=== PATIENT | male | born 1985 | race African-American/Black ===

== ENCOUNTER 2020-03-04 18:12 | Emergency (ER) | payer SELFPAY ==
[2020-03-04 18:24] VITALS: BMI 21.1
--- NOTE | 2020-03-04 18:29 | PDOC ---
History of Present Illness - General Chief Complaint: Nausea/Vomiting Stated Complaint: VOMITTING Time Seen by Provider: 03/04/20 18:29 History Source: Patient Exam Limitations: No Limitations - History of Present Illness Initial Comments: 03/04/20 19:11 HPI: This is a 34 y/o male with no PMH and no hx of abdominal surgery presenting to the ED because of nausea and 5 episodes of NBNB emesis that began at 7am this morning. He works cleaning restaurants overnight, and the nausea and vomiting started when he got home. Following the N/V, he began having non-radiating periumbilical squeezing abdominal pain. He tried eating a hamburger, and then threw it up. He has been making himself vomit because it relieves his nausea. He admits to one episodes of non-bloody diarrhea this morning. Denied any fever/chills, headache, chest pain, SOB. ROS: GENERAL/CONSTITUTIONAL: No fever/chills. No weakness. HEAD, EYES, EARS, NOSE AND THROAT: No change in vision. No ear pain or discharge. No sore throat. CARDIOVASCULAR: No chest pain or shortness of breath. RESPIRATORY: No cough, wheezing, or hemoptysis. GASTROINTESTINAL: Yes nausea/vomiting. Yes diarrhea. GENITOURINARY: No dysuria, frequency, or change in urination. MUSCULOSKELETAL: No joint or muscle swelling or pain. No neck or back pain. SKIN: No rash NEUROLOGIC: No headache, vertigo HEMATOLOGIC/LYMPHATIC: No anemia, easy bleeding, or history of blood clots. ALLERGIC/IMMUNOLOGIC: No hives or skin allergy. PMH: Denies PSx: Inguinal hernia repair (3yrs) Social Hx: Admits to tobacco and marijuana. Denies etoh. Meds: Denies Allergies: Denies PE: GENERAL: Awake, alert, and fully oriented. Patient uncomfortable. HEAD: No signs of trauma EYES: PERRLA, EOMI, sclera anicteric, conjunctiva clear NECK: Normal ROM, supple LUNGS: Breath sounds equal, clear to auscultation bilaterally. No wheezes, and no crackles HEART: Regular rate and rhythm, normal S1 and S2, no murmurs, rubs or gallops ABDOMEN: Soft, nontender, normoactive bowel sounds. No guarding, no rebound. No masses EXTREMITIES: Normal range of motion, no edema. No clubbing or cyanosis. No cords, erythema, or tenderness NEUROLOGICAL: Cranial nerves II through XII grossly intact. Normal speech, normal gait MDM: This is a 34 y/o male with no PMH and no hx of abdominal surgery presenting to the ED because of nausea and 5 episodes of NBNB emesis that began at 7am this morning. - Self induced vomiting because he says it resolves the nausea - No abdominal tenderness on exam appendicitis vs pancreatitis vs rhabdo vs cyclic vomiting due to marijuana use - EKG - CXR - CBC - CMP - CK - UA - Utox - Will give zofran, famotidine, fluids and reassess - Vomiting stopped after zofran - labs WNL - Pt reports that he uses marijuana 03/04/20 22:25 - Pt reports improvement with symptoms with medication and rehydration - PO challenge and then d/c - Pt ok with being d/c. Understands return precautions. Advised to follow-up with a pcp. Referral given. Past History - Medical History Allergies/Adverse Reactions: Allergies Allergy/AdvReac Type Severity Reaction Status Date / Time No Known Allergies Allergy Unverified 03/04/20 18:24 Home Medications: Ambulatory Orders Ondansetron HCl [Zofran] 4 mg PO TID PRN 5 Days #15 tablet 03/04/20 COPD: No - Psycho-Social/Smoking History Smoking History: Current every day smoker Have you smoked in the past 12 months: Yes Number of Cigarettes Smoked Daily: 12 Information on smoking cessation initiated: No - Substance Abuse Hx (Audit-C & DAST Scrn) How often the patient has a drink containing alcohol: Never Score: In Men: 4 or > Positive; In Women: 3 or > Positive: 0 Screen Result (Pos requires Nsg. Audit-10AR): Negative In the last yr the pt used illegal drug/Rx for NonMed reason: No Score: Yes response is considered Positive: 0 Screen Result (Positive result requires Nsg. DAST-10): Negative *Physical Exam - Vital Signs Last Vital Signs Temp Pulse Resp BP Pulse Ox 97.7 F 140 H 22 H 153/72 99 03/04/20 18:18 03/04/20 18:18 03/04/20 18:18 03/04/20 18:18 03/04/20 18:18 Heart Score/ECG Review - ECG Intrepretation Comment:: 03/04/20 22:[address] elevations. Sinus bradycardia. Septal infarct age undetermined. Vent rate 50bpm, CT interval 158ms, QRS duration 110ms, QT/QTc 432/393 ED Treatment Course - LABORATORY CBC & Chemistry Diagram: 03/04/20 19:50 03/04/20 19:50 Discharge - Discharge Information Problems reviewed: Yes Clinical Impression/Diagnosis: Nausea and vomiting Qualifiers: Vomiting type: unspecified Vomiting Intractability: non-intractable Qualified Code(s): R11.2 - Nausea with vomiting, unspecified Condition: Stable Disposition: HOME - Admission No - Additional Discharge Information Prescriptions: Ondansetron HCl [Zofran] 4 mg PO TID PRN 5 Days #15 tablet PRN Reason: Nausea - Follow up/Referral Referrals: [facility] [place] [facility] [Provider Group] - Patient Discharge Instructions Patient Printed Discharge Instructions: DI for Nausea -- Adult, DI for Vomiting -- Adult Additional Instructions: You came to the ED because of nausea/vomiting and abdominal pain. We treated your nausea with Zofran and Reglan. Your labs were all fine. - We are sending Zofran to [facility] on [address] [facility] Over the next 24 hours try and only drink clear liquids. If you can keep that down you can move onto the BRAT (bananas, rice, applesauce, toast) diet. If you tolerate that, you can then eat normally. Please return to the ED with any new or concerning symptoms. Return if you develop severe abdominal pain that does not resolve, or vomiting that does not resolve. - Follow-up with your primary care doctor within the next week. - We have referred you to the [facility]. You can call them and make an appointment. - Post Discharge Activity
[2020-03-04] MEDS ORDERED: LACTATED RINGERS SOLUTION 1000 ML INFUS.BAG IV ONE ×2 (18:49→19:22)
[2020-03-04] MEDS ORDERED: ONDANSETRON 4 MG/2 ML VIAL IVPUSH ONE (19:21)
[2020-03-04] MEDS ORDERED: FAMOTIDINE 20 MG/50 ML IVPB 20 MG/50 ML MG IVPB ONE ×2 (19:21→19:52)
[2020-03-04 20:02] LABS: BASO % 1.4 % (0-2.0); EOS % 0.5 % (0-4.5); HEMATOCRIT 44.7 % (35.4-49); HEMOGLOBIN 15.4 GM/dL (11.7-16.9); LYMPH % 27.8 % (8-40); MCH 32.2 pg (25.7-33.7); MCHC 34.3 g/dl (32.0-35.9); MEAN CELL VOLUME 93.7 fl (80-96); MEAN PLT VOLUME 8.6 fl (7.5-11.1); MONO % 9.1 % (3.8-10.2); NEUT % 61.2 % (42.8-82.8); PLATELET COUNT 181 K/MM3 (134-434); RBC 4.77 M/mm3 (4.00-5.60); RDW 13.6 % (11.9-15.9); WHITE BLOOD COUNT 7.5 K/mm3 (4.0-10.0)
[2020-03-04 20:26] LABS: ALBUMIN 4.2 g/dl (3.4-5.0); BILIRUBIN,TOTAL 0.8 mg/dL (0.2-1); BLOOD UREA NITROGEN 7.9 mg/dL (7-18); CALCIUM 8.9 mg/dL (8.5-10.1); POTASSIUM 3.7 mmol/L (3.5-5.1); TOT PROT 7.4 g/dl (6.4-8.2)
--- NOTE | 2020-03-04 20:38 | PDOC ---
Documentation entered by Marcelina Bernard SCRIBE, acting as scribe for Leeanne Roblero DO. Leeanne Roblero DO: This documentation has been prepared by the albertoibe, Marcelina Bernard SCRIBE, under my direction and personally reviewed by me in its entirety. I confirm that the documentation accurately reflects all work, treatment, procedures, and medical decision making performed by me. Attending Attestation - Resident Resident Name: Yeimy Steve - ED Attending Attestation I have performed the following: I have examined & evaluated the patient, The case was reviewed & discussed with the resident, I agree w/resident's findings & plan, Exceptions are as noted - HPI HPI: 03/04/20 18:28 Patient is a 34 year old male with no significant past medical history of who presents to the ED with nausea and vomiting since 7am this morning. 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 Patient reports he had 5 episodes of NBNB vomiting and shortly after began having periumbilical squeezing and abdominal pain that was non-radiating. Patient said he attempted to eat a hamburger but vomited again and had 1 episode of NBNB diarrhea. Patient disclosed he "makes himself vomit because it alleviates the nausea". Patient denies: any other related symptoms. Allergies: NKDA - Physicial Exam PE: 03/04/20 20:36 Gen: sleeping, easily arousable heart: +s1s2 reg lungs: cta b/l abd: soft, nt/nd +bs ext: no c/c/e - Medical Decision Making 03/04/20 20:36 a/p: 34yo male with cute onset of n/v and abd pain -no abd ttp -multiple episodes of self induced vomiting upon arival -pt admits to marijuana use -denies etoh use -will send labs, ivf hydration, zofran, pepcid -will monitor and reassess 03/04/20 22:30 pt feeling better no vomiting since being medicated sipping water in NAD stable for dc to home Heart Score/ECG Review - ECG Intrepretation Comment:: 03/04/20 20:37 sinus hang at 50, nl axis, no acute st/t wave findings Discharge - Discharge Information Problems reviewed: Yes Clinical Impression/Diagnosis: Nausea & vomiting Condition: Stable Disposition: HOME - Admission No - Follow up/Referral - Patient Discharge Instructions - Post Discharge Activity
[2020-03-04] MEDS ORDERED: METOCLOPRAMIDE HCL INJECTION 10 MG/2 ML VIAL IVPUSH ONE (20:47)
[2020-03-04] MEDS ORDERED: METOCLOPRAMIDE HCL INJECTION 10 MG/2 ML VIAL ONE (20:48)
[2020-03-04 21:52] LABS: PH,URINE 8.5 (5.0-8.0); URINE APPEARANCE TURBID; URINE BILIRUBIN NEGATIVE (NEGATIVE); URINE COLOR YELLOW; URINE GLUCOSE (UA) 2+ (NEGATIVE); URINE KETONE 2+ (NEGATIVE); URINE LEUK ESTERASE NEGATIVE (NEGATIVE); URINE NITRITE NEGATIVE (NEGATIVE); URINE PROTEIN NEGATIVE (NEGATIVE)
[2020-03-04 22:02] LABS: COCAINE, UR NEGATIVE ng/ml (CUTOFF=300); OPIATES, URI NEGATIVE ng/ml (CUTOFF=300); PHENCYCLIDINE,URINE NEGATIVE ng/ml (CUTOFF=25); URINE AMPHETAMINES NEGATIVE ng/ml (CUTOFF=500); URINE BARBITURATES NEGATIVE ng/ml (CUTOFF=200)
[2020-03-04 22:03] LABS: METHADONE, UR NEGATIVE ng/ml (CUTOFF=300); URINE BENZODIAZEPINES NEGATIVE ng/ml (CUTOFF=200)
[2020-03-04 22:58] VITALS: BP 131/69; PULSE 57; TEMP 98.3
--- NOTE | 2020-03-05 14:47 | EKG ---
Test Reason : Blood Pressure : / mmHG Vent. Rate : 050 BPM Atrial Rate : 050 BPM P-R Int : 158 ms QRS Dur : 110 ms QT Int : 432 ms P-R-T Axes : 071 061 069 degrees QTc Int : 393 ms SINUS BRADYCARDIA SEPTAL INFARCT , AGE UNDETERMINED ABNORMAL ECG NO PREVIOUS ECGS AVAILABLE Confirmed by NATALY HATHAWAY MD ([id number]) on 03/05/2020 2:46:53 PM Referred By: Confirmed By:NATALY HATHAWAY MD
== END 2020-03-04 22:58 | disposition home or self-care (01) ==
LOC: JER 18:12
PROC: 3E033GC Introduction of Other Therapeutic Substance into Peripheral Vein, Percutaneous Approach (ICD-10-PCS; principal; 2020-03-04)
DX: R11.2 Nausea with vomiting, unspecified (principal)
CPT/HCPCS: 36415; 71045-TC-FY; 80053; 80307; 81003; 82550; 82553; 83690; 85025; 93005; 93010; 99285-25

== ENCOUNTER 2022-07-26 15:50 | Emergency (ER) | payer OTHER ==
[2022-07-26 16:19] VITALS: BP 113/74; PULSE 71; RESP 16; TEMP 98.4; BMI 20.9
[2022-07-26 19:21] LABS: BASO % 1.3 % (0-2.0); HEMOGLOBIN 15.5 GM/dL (11.7-16.9); LYMPH % 45.1 % (8-40); MCH 31.7 pg (25.7-33.7); MCHC 34.5 g/dl (32.0-35.9); MEAN CELL VOLUME 91.9 fl (80-96); MEAN PLT VOLUME 9.8 fl (7.5-11.1); MONO % 5.3 % (3.8-10.2); NEUT % 46.3 % (42.8-82.8); PLATELET COUNT 227 10^3/uL (134-434); RDW 13.1 % (11.9-15.9); WHITE BLOOD COUNT 8.9 K/mm3 (4.0-10.0)
[2022-07-26 19:45] LABS: CHLORIDE 100 mmol/L (98-107); SODIUM 135 mmol/L (136-145)
[2022-07-26 19:47] LABS: ALBUMIN 3.8 g/dl (3.4-5.0); CALCIUM 9.2 mg/dL (8.5-10.1)
[2022-07-26 19:48] LABS: ANION GAP 10 MMOL/L (8-16); BLOOD UREA NITROGEN 20.2 mg/dL (7-18); CO2 25 mmol/L (21-32)
[2022-07-26 19:51] LABS: CREATININE 0.9 mg/dL (0.55-1.3); SGOT/AST 15 U/L (15-37); SGPT/ALT 27 U/L (13-61)
[2022-07-26 19:52] LABS: TOT PROT 7.2 g/dl (6.4-8.2)
[2022-07-26 19:53] LABS: ALK PHOS 103 U/L (45-117); BILIRUBIN,TOTAL 0.4 mg/dL (0.2-1)
[2022-07-26 19:55] LABS: GLUCOSE,RANDOM 410 mg/dL (74-106)
[2022-07-26] MEDS ORDERED: SODIUM CHLORIDE 0.9% 500 ML INFUS.BAG IV ONE (20:01)
== END 2022-07-26 23:06 | disposition home or self-care (01) ==
LOC: JER 15:50
DX: R73.9 Hyperglycemia, unspecified (principal)
CPT/HCPCS: 36415; 80053; 82962; 85025; 99283-25